=== PATIENT | male | born 1965 | race Caucasian/White ===

== ENCOUNTER 2017-12-19 09:54 | Observation (INO) | payer OTHER ==
[~2017-12-19] VITALS: Ht 185.4 cm; Wt 151.5 kg
[~2017-12-19 09:54] MED LIST: VIMOVO PO
[2017-12-19 10:38] LABS: BASOPHILS # (AUTO) 0.1 (0.0-0.1); BASOPHILS % 0.5 % (0.0-1.0); EOSINOPHILS # (AUTO) 0.1 (0.0-0.4); EOSINOPHILS % 1.1 % (0.0-6.0); HEMATOCRIT 56.6 % (38.2-49.6); HEMOGLOBIN 19.8 g/dL (14.0-18.0); LYMPHOCYTES # (AUTO) 1.3 (1.0-3.2); LYMPHOCYTES % 12.2 % (18.0-39.1); MEAN CORPUSCULAR VOLUME 91.6 fL (81-99); MONOCYTES # (AUTO) 0.9 (0.2-0.8); MONOCYTES % 8.5 % (4.4-11.3); NEUTROPHILS # (AUTO) 8.5 (2.1-6.9); NEUTROPHILS % 77.5 % (38.7-80.0); PLATELET COUNT 206 x10e3/uL (140-360); RED BLOOD COUNT 6.18 x10e6/uL (4.3-5.7); RED CELL DISTRIBUTION WIDTH 12.9 % (11.7-14.4)
[2017-12-19] MEDS ORDERED: DIATRIZOATE MEGL/DIATRIZOA SOD 30 ML BTL PO ONE (10:38)
[2017-12-19] MEDS ORDERED: ONDANSETRON HCL INJ 2 MG/ML VIAL IV STA (10:42)
[2017-12-19 10:44] LABS: CLARITY,URINE CLEAR (CLEAR); COLOR,URINE AMBER (YELLOW)
[2017-12-19 10:45] LABS: BILIRUBIN,URINE NEGATIVE (NEGATIVE); KETONES,URINE 1+ (NEGATIVE); LEUKOCYTE ESTERASE ,URINE NEGATIVE (NEGATIVE); NITRITE,URINE NEGATIVE (NEGATIVE); PROTEIN,URINE DIPSTICK TRACE (NEGATIVE); URINE UROBILINOGEN 0.2 mg/dL (0.2 - 1)
[2017-12-19 10:50] LABS: INR 1.1; PROTHROMBIN TIME 13.4 seconds (11.9-14.5)
[2017-12-19 10:51] LABS: PARTIAL THROMBOPLASTIN TIME 32.5 seconds (23.8-35.5)
[2017-12-19 10:58] LABS: EPITHELIAL CELLS,URINE FEW /LPF
[2017-12-19 10:59] LABS: ALANINE AMINOTRANSFERASE 61 IU/L (0-55); ALBUMIN 4.5 g/dL (3.5-5.0); ALBUMIN/GLOBULIN RATIO 1.3 (0.8-2.0); ALKALINE PHOSPHATASE 76 IU/L (40-150); AMYLASE 90 U/L (25-125); ANION GAP 15.1 mmol/L (8-16); BLOOD UREA NITROGEN 12 mg/dL (7-26); BUN/CREATININE RATIO 11 (6-25); CALCIUM 10.4 mg/dL (8.4-10.2); CARBON DIOXIDE 26 mmol/L (22-29); CHLORIDE 100 mmol/L (98-107); CREATININE, SERUM 1.13 mg/dL (0.72-1.25); EST GLOMERULAR FILTRATION RATE > 60 ML/MIN (60-); GLUCOSE 109 mg/dL (74-118); LIPASE 58 U/L (8-78); MAGNESIUM 1.9 MG/DL (1.3-2.1); MUCUS,URINE MODERATE (RARE); POTASSIUM 4.1 mmol/L (3.5-5.1); RBC,URINE 0-5 /HPF (0-5); SODIUM 137 mmol/L (136-145); WBC,URINE (MAN) 0-5 /HPF (0-5)
--- NOTE | 2017-12-19 12:21 | Diagnostic Imaging Report ---
PROCEDURE: A single AP view of the chest. COMPARISON: None. INDICATIONS: STOMACH PAIN FINDINGS: Lines/tubes: None. Lungs: The lungs are well inflated and clear. There is no evidence of pneumonia or pulmonary edema. Pleura: There is no pleural effusion or pneumothorax. Heart and mediastinum: The heart and the mediastinum are unremarkable. Bones: No acute bony abnormality. IMPRESSION: 1. No acute cardiopulmonary disease. David Gonzales M.D. Dictated by: David Gonzales M.D. on 12/19/2017 at 12:26 Electronically approved by: David Gonzales M.D. on 12/19/2017 at 12:26
--- NOTE | 2017-12-19 14:31 | Diagnostic Imaging Report ---
EXAM: CT Chest WITH contrast 12/19/2017 10:45 AM INDICATION: Chest pain. Low oxygen saturation. Pulmonary embolism. COMPARISON: None TECHNIQUE: Chest was scanned utilizing a multidetector helical scanner from the lung apex through the level of the adrenal glands without administration of IV contrast. Coronal and sagittal reformations were obtained. Pulmonary embolism protocol was performed. Initial scan demonstrated suboptimal opacification of the pulmonary arteries, so repeat examination of the chest was performed. IV CONTRAST: 160 mL of Isovue 300 RADIATION DOSE: Total DLP: 2035.42 mGy*cm Estimated effective dose: (DLP x 0.014 x size factor) mSv COMPLICATIONS: None. FINDINGS: LINES/ TUBES: None. LUNGS AND AIRWAYS: Examination limited due to beam hardening artifact due to body habitus. No filling defects to the pulmonary arteries to the resolved segmental level. Questionable filling defect in the posterior right lower lobe pulmonary artery on image 78 and 82 probably artifactual. The lungs are unremarkable. Airways are normal. PLEURA: The pleural spaces are clear. HEART AND MEDIASTINUM: The thyroid gland is normal. No mediastinal, hilar or axillary lymphadenopathy. The heart is normal in size.. There is no pericardial effusion. Lipomatosis. UPPER ABDOMEN: Limited non-contrast views of the upper abdomen show no abnormality within the visualized liver, spleen, pancreas, or kidneys. The adrenal glands are normal. BONES: No acute osseous abnormality. SOFT TISSUES: Unremarkable. IMPRESSION: No acute thoracic abnormality. Signed by: Dr. David Gonzales M.D. on 12/19/2017 2:27 PM
--- NOTE | 2017-12-19 15:00 | Diagnostic Imaging Report ---
EXAM: CT Abdomen and Pelvis WITH contrast INDICATION: Pain. Concern for bowel obstruction. COMPARISON: None. TECHNIQUE: Abdomen and pelvis were scanned utilizing a multidetector helical scanner from the lung base to the pubic symphysis after administration of IV contrast. Coronal and sagittal reformations were obtained. Routine protocol was performed. Scan was performed when during portal venous phase. IV CONTRAST: 100 cc Isovue 300 ORAL CONTRAST: Gastrografin and water mixture. RADIATION DOSE: Total DLP: 2035.42 mGy*cm (dose includes CT chest performed on the same day and time) Estimated effective dose: (DLP x 0.015 x size factor) mSv COMPLICATIONS: None FINDINGS: LINES and TUBES: None. LOWER THORAX: Unremarkable HEPATOBILIARY: Diffuse hepatic steatosis. No focal hepatic lesions. No biliary ductal dilation. GALLBLADDER: Subtle hyperdensity in the gallbladder neck on image 36 series 5 may represent calculi. No wall thickening. SPLEEN: No splenomegaly. Nonspecific fat attenuation focus in the spleen on image 24 series 5. PANCREAS: No focal masses or ductal dilatation. 8 mm focal fat in the uncinate process on image 42 series 5. ADRENALS: No adrenal nodules KIDNEYS/URETERS: Kidneys enhance symmetrically. No hydronephrosis. No cystic or solid mass lesions. No stones. GI TRACT: No abnormal distention, wall thickening, or evidence of bowel obstruction. Appendix is normal. PELVIC ORGANS/BLADDER: Unremarkable. LYMPH NODES: No lymphadenopathy. VESSELS: There is mild atherosclerotic disease in the aorta and major arterial branches. Accessory left renal artery. PERITONEUM / RETROPERITONEUM: No free air or fluid. BONES: Facet arthropathy on the left L4-L5. SOFT TISSUES: Unremarkable. IMPRESSION: 1. No acute abdominopelvic abnormality. 2. Hepatic steatosis. Signed by: Dr. David Gonzales M.D. on 12/19/2017 2:56 PM
[2017-12-19 16:26] LABS: ABG PCO2 45 mmHg (41-51); ABG PH 7.38 (7.31-7.41)
[2017-12-19 16:27] LABS: ABG HCO3 26 mmol/L (23-28); ABG PO2 75 mmHg (80-105)
[2017-12-19] MEDS ORDERED: SODIUM CHLORIDE 0.9% 50ML 50 ML ONE (16:58)
[2017-12-19] MEDS ORDERED: IOPAMIDOL 370 MG/ML 200 ML INFUS..BTL INJ ONE (16:58)
[2017-12-19] MEDS ORDERED: MORPHINE SULFATE INJ 4 MG/ML INJ IV PRN (18:45)
[2017-12-19] MEDS ORDERED: ZOLPIDEM TARTRATE 5 MG TAB PO PRN (18:45)
[2017-12-19] MEDS ORDERED: SIMETHICONE 80 MG CHEW PO PRN (18:45)
[2017-12-19] MEDS ORDERED: ALBUTEROL/IPRATROPIUM 3 ML NEB NEB PRN (18:45)
[2017-12-19] MEDS ORDERED: ACETAMINOPHEN 325 MG TAB PO PRN (18:45)
[2017-12-19] MEDS ORDERED: ONDANSETRON HCL INJ 2 MG/ML VIAL IV PRN (18:45)
[2017-12-19] MEDS ORDERED: MORPHINE SULFATE 2 MG/ML SYR IV PRN (19:00)
[2017-12-19] MEDS ORDERED: SODIUM CHLORIDE 0.9% 1000ML 1,000 ML ONE (19:30)
[2017-12-19] MEDS: SODIUM CHLORIDE 0.9% 1000ML 1,000 ML IV SCH (20:17)
--- NOTE | 2017-12-19 21:18 | History and Physical ---
Patient location: ER, room 7. PRESENTING COMPLAINT: Worsening diffuse abdominal pain for the last 2 days. HISTORY OF PRESENT ILLNESS: A 52-year-old male who was admitted from the ER. The patient came himself to the ER for unremitting diffuse mid abdominal pain that started yesterday. The patient felt that the pain was cramping, moderate in intensity, got worse this morning. He did not have any diarrhea. The patient had last bowel movement yesterday morning, was normal. Denies any bloody stool or black stool. The patient felt nauseated. He did not have any vomiting. He also denies any fever, chest pain, shortness of breath. The patient did not have any similar episodes in the past. He has a history of hiatal hernia. EGD was done several years ago at [facility]. He had a colonoscopy last year by Dr. Monge at this hospital. The patient denies any other complaints now. He is feeling better than in the morning at this present time. The patient's workup including CT of the abdomen and pelvis and did not show any significant abnormalities other than fatty liver. The patient has morbid obesity. He has history of sleep apnea on home CPAP for the last 4 years. He was found having hypoxia. Pulse oximetry was 84% to 85% on room air. CT chest with IV contrast did not show any convincing evidence of pulmonary embolism. The patient was persistently hypoxic upon nebulizer treatment and oxygen in the ER. His pulse oximetry got slightly improved, around 90%, but without oxygen it goes down again to 86% to 87% as per report from the ER physician. The patient denies any shortness of breath. He uses CPAP without any oxygen at home. The patient is also on testosterone injection every 2 weeks as per recommendation by his urologist. He was found having polycythemia likely secondary to testosterone and also sleep apnea. The patient denies any other complaints now. REVIEW OF SYSTEMS CONSTITUTIONAL: No fever, chills, rigor. ENT: No nasal congestion, no sore throat, no visual disturbance, and no earache. CARDIOVASCULAR: No chest pain, palpitation, or shortness of breath. PULMONARY: No cough, no hemoptysis. GI: Diffuse mid and lower abdominal pain as per HPI. Mild nausea and no vomiting. No passage of bloody stool or black stool. No blood in vomitus. : No dysuria and no hematuria. The patient has erectile dysfunction and hypergonadism as per his statement. No dysuria. No hematuria. MUSCULOSKELETAL, SKIN, LYMPHORETICULAR: No joint pain. No joint swelling. No skin rash, no swelling. NEUROLOGICAL: No loss of consciousness, seizure, or headache. HISTORY OF PAST MEDICAL ILLNESS: Obstructive sleep apnea on CPAP. Erectile dysfunction, hypergonadism, morbid obesity. Tubular adenoma of cecum and ascending colon. GERD , hiatal hernia. Morbid obesity. No history of hypertension or hyperlipidemia, diabetes mellitus, CAD, stroke or cancer as per the patient's statement. HISTORY OF PAST SURGERY: Vasectomy. No other history of surgery. EGD done more than 4 years ago. Colonoscopy last year at this hospital. ALLERGIES: NO KNOWN DRUG ALLERGIES. HOME MEDICATIONS: The patient is on Cialis for erectile dysfunction and testosterone injection every 2 weeks by his urologist. The patient is on no other medications. SOCIAL HISTORY: The patient lives at home with his in [place]. He has 3 offspring. HABITS: The patient denies smoking cigarettes or substance abuse. He drinks alcohol. His last alcoholic drink was 2 weeks ago. FAMILY HISTORY: No positive family history of CAD. PHYSICAL EXAMINATION VITAL SIGNS: At presentation, blood pressure 130/86, pulse 93, temperature 98.2, respirations 20, SPO2 of 88% on room air, now 94% on 2 liters of oxygen via nasal cannula. GENERAL: Alert, not in any acute distress now, lying in bed comfortably now, feeling better than in the morning. HEENT: NC, AT. No pallor. No icterus. Oral mucosa moist. NECK: No JVD, no carotid bruit, no lymphadenopathy, no thyromegaly. HEART: S1 and S2 regular. No murmur. LUNGS: Clear to auscultation. ABDOMEN: Soft with mild diffuse tenderness. No rebound tenderness. No palpable mass. Bowel sounds active in all quadrants. Obesity present. EXTREMITIES: No cyanosis, clubbing or edema. NEUROLOGICAL: Motor grossly equal on both sides. LABORATORY DATA: CBC: WBC 10.96, hemoglobin 19.8, hematocrit 52, platelets 206,000, MCV 91, RDW 12.9, neutrophils 77, lymphocytes 12. PT 13.4. INR 1.1. PTT 32.5. Arterial blood gas: P 7.38, pCO2 45, pO2 75, bicarb 26. O2 sat 94% on room air. Chemistry panel: Sodium 137, potassium 4.1, chloride 100, CO2 of 26, anion gap 11, BUN 12, creatinine 1.13, glucose 109, lactic acid 8.5, calcium 10.4, magnesium 1.9. Total bilirubin 1.3, AST 37, ALT 61, alkaline phosphatase 76. Total protein 8.1, Albumin 4.5,Globulin 3.6. Amylase 90, lipase 58. Urinalysis: Protein trace, glucose negative, ketones 1+, WBCs 0-5, RBCs 0-2. RADIOLOGICAL DATA: Chest x-ray: Single view no acute cardiopulmonary disease. Heart and mediastinum unremarkable. No evidence of pneumonia or pulmonary edema. CT of the abdomen and pelvis with contrast, no acute abnormalities noted, hepatic steatosis present. CT of chest with IV contrast no acute thoracic abnormality. EKG pending. ASSESSMENT AND PLAN 1. Diffuse abdominal pain, exact etiology not clear. The patient's CT of the abdomen with contrast is negative for any acute abnormalities. He has history of tubular adenoma and constipation, likely related to constipation. The patient had last bowel movement yesterday. Would keep the patient on some bowel regimen for now. If needed, would consult evaporator operator, Dr. Monge, who is familiar with the patient. He had a colonoscopy last year by him. Continue the patient on famotidine p.o. for now. 2. Hypoxia due to sleep apnea likely. The patient has also slight elevation of the pCO2. He does not have any shortness of breath. The patient was on CPAP. Dr. Calzada, high school teacher, was consulted. He recommended addition of oxygen with the CPAP machine. Will keep the patient on CPAP with oxygen. 3. Polycythemia, likely secondary to both hypoxia and testosterone injection. Will treat the patient as per renal request. Hematology consult for need for phlebotomy. 4. Cardiac evaluation. The patient had a cardiac evaluation recently as an outpatient by his primary care physician, Dr. Mendoza Bocanegra. Workup was negative as per report. Would have an EKG. Would also add troponin and BNP to his labs. ADVANCE DIRECTIVE: The patient is full code. DISCHARGE PLAN: Will discharge the patient tomorrow if cleared by high school teacher and blueprint maker. Job#: [id number] [facility]
[2017-12-20 05:43] LABS: BASOPHILS % 0.5 % (0.0-1.0); EOSINOPHILS # (AUTO) 0.2 (0.0-0.4); EOSINOPHILS % 2.4 % (0.0-6.0); HEMOGLOBIN 17.5 g/dL (14.0-18.0); LYMPHOCYTES # (AUTO) 1.6 (1.0-3.2); LYMPHOCYTES % 21.1 % (18.0-39.1); MEAN CORPUSCULAR HEMOGLOBIN 32.3 pg (28-32); MEAN CORPUSCULAR VOLUME 92.4 fL (81-99); MONOCYTES # (AUTO) 0.8 (0.2-0.8); MONOCYTES % 10.7 % (4.4-11.3); NEUTROPHILS # (AUTO) 5.1 (2.1-6.9); PLATELET COUNT 163 x10e3/uL (140-360); RED BLOOD COUNT 5.41 x10e6/uL (4.3-5.7); RED CELL DISTRIBUTION WIDTH 12.8 % (11.7-14.4)
[2017-12-20 06:06] LABS: ALANINE AMINOTRANSFERASE 45 IU/L (0-55); ALBUMIN 3.5 g/dL (3.5-5.0); ALBUMIN/GLOBULIN RATIO 1.2 (0.8-2.0); ALKALINE PHOSPHATASE 64 IU/L (40-150); ANION GAP 12.9 mmol/L (8-16); BILIRUBIN,DIRECT 0.3 mg/dL (0.0-0.5); BLOOD UREA NITROGEN 14 mg/dL (7-26); BUN/CREATININE RATIO 13 (6-25); CALCIUM 9.2 mg/dL (8.4-10.2); CARBON DIOXIDE 26 mmol/L (22-29); CHLORIDE 103 mmol/L (98-107); CHOL/HDL RATIO 5.4 (3.9-4.7); CHOLESTEROL 129 MD/DL (0-199); CREATININE, SERUM 1.05 mg/dL (0.72-1.25); EST GLOMERULAR FILTRATION RATE > 60 ML/MIN (60-); GLUCOSE 91 mg/dL (74-118); HDL CHOLESTEROL 24 MG/DL (40-60); LDL CHOLESTEROL 83 MG/DL (60-130); POTASSIUM 3.9 mmol/L (3.5-5.1); SODIUM 138 mmol/L (136-145); TRIGLYCERIDES 112 MG/DL (0-149)
[2017-12-20 06:13] LABS: THYROID STIMULATING HORMONE 0.922 uIU/mL (0.350-4.940)
[2017-12-20] MEDS: SODIUM CHLORIDE 0.9% 1000ML 1,000 ML IV SCH (08:05)
[2017-12-20] MEDS ORDERED: ASPIRIN 325 MG TAB PO SCH (09:00)
[2017-12-20] MEDS ORDERED: THIAMINE HCL 100 MG TAB PO SCH (09:00)
--- NOTE | 2017-12-20 11:25 | Consultation ---
DATE OF CONSULTATION: December 19, 2017 PULMONARY CONSULTATION PATIENT OF: Dr. Sajan Bocanegra and Dr. Messer Admitted with cramping abdominal pain. Concern because his initial pulse oximetry was low; however, blood gases were performed and pO2 was 75 and O2 sat was 94. Patient does have a history of obesity, hypoventilation syndrome, and uses his BiPAP faithfully at night. He does take testosterone injections prescribed by Dr. Olvera He has had a vasectomy. His medications include Cialis and a cholesterol lowering medicine which he takes only intermittently. CT of the abdomen revealed only fatty liver, questionable gallstone. PHYSICAL EXAMINATION VITAL SIGNS: Temperature 98.2, pulse 93, respirations 20, blood pressure 138/86. HEAD: Normocephalic and atraumatic. Full neck. LUNGS: Diminished breath sounds but clear. HEART: Regular rhythm. ABDOMEN: Obese. EXTREMITIES: Not edematous. PLAN: Plan is for oximetry overnight. While using the patient's CPAP, consider assessing him for home oxygen to keep saturations well at night. Consider phlebotomy for hemoglobin. The patient donates blood on a somewhat irregular basis. Occult malignancy seems unlikely. Thank you for this kind referral. Job#: [id number]
[2017-12-20] MEDS: PANTOPRAZOLE SOD 40 MG TABEC PO SCH ×2 (12:21→17:15)
[2017-12-20] MEDS: DOCUSATE SODIUM 100 MG CAP PO SCH ×2 (12:21→17:15)
[2017-12-20 12:41] VITALS: BP 138/68
[2017-12-20 15:16] VITALS: BP 138/68
[2017-12-20 15:22] VITALS: BP 130/78
[2017-12-20 15:29] VITALS: BP 130/78
--- NOTE | 2017-12-20 16:05 | Consultation ---
DATE OF CONSULTATION: December 20, 2017 ATTENDING DOCTOR: Dr. Qureshi. Thank you, Dr. Qureshi, for this consultation. This is a very pleasant 52-year-old gentleman with a past medical history that includes COPD, obstructive sleep apnea, hypogonadism, currently on testosterone treatment, admitted through emergency with worsening shortness of breath. His other medical conditions include GERD, hyperlipidemia, and morbid obesity. Patient also complaining of worsening abdominal pain, it started yesterday. It was associated with nausea, but denies any vomiting, constipation, or loose motion. No fevers or chills reported. At the time of admission, patient's CBC showed hemoglobin was 19. Patient has no recent history of any headache, dizziness, or stroke. Patient received IV hydration, hemoglobin dropped to 17. Patient is symptomatically feeling better. PAST MEDICAL HISTORY: Includes obstructive sleep apnea, erectile dysfunction, hypogonadism, morbid obesity, tubular adenoma of cecum, GERD, hiatal hernia. ALLERGIES: IN NURSING LIST. MEDICATIONS: List reviewed. SOCIAL HISTORY: No current smoking, alcohol, or drug. REVIEW OF SYSTEMS: A 12-point review as per the HPI. FAMILY HISTORY: Noncontributory. PHYSICAL EXAMINATION GENERAL: Alert, awake, communicative. HEENT: Normocephalic, atraumatic. Sclerae pink. Conjunctivae clear. NECK: Supple. CHEST: Decreased breath sounds at the bases. CARDIOVASCULAR: Regular rate and rhythm. ABDOMEN: Soft, obese. EXTREMITIES: No clubbing, cyanosis, or edema. LABS AND IMAGING: Reviewed. ASSESSMENT AND PLAN: Patient with history of multiple medical conditions. I am currently following for; 1. Erythrocytosis. The patient has erythrocytosis secondary to obstructive sleep apnea and testosterone treatment. Patient's hematocrit is trending downward. Discussed in detail about the testosterone treatment. Patient will hold testosterone treatment at current. Will discuss about compliance with the CPAP machine. Will monitor CBC closely. In case of no response, might consider palliative phlebotomy. Will follow patient closely. 2. Abdominal pain. So far, doing better. Clinical condition is improving. Continue current care. 3. Hypoxemia due to sleep apnea. Patient is following with linen room supervisor. Will continue remaining care. Will follow patient closely. Job#: [id number] [facility]
--- NOTE | 2017-12-20 16:11 | Diagnostic Imaging Report ---
PROCEDURE:ABDOMINAL ULTRASOUND COMPARISON:[facility], CT, CT ABDOMEN/PELVIS W, 12/19/2017, 13:00. INDICATIONS:ABDOMEN PAIN FINDINGS: Exam limited by patient's large body habitus. Liver: 16.0 cm. Increased hepatic parenchymal echogenicity. No focal mass. Main portal vein: 1.1 cm. Hepatopetal flow. Gallbladder: Questionable small stone at the gallbladder neck. No other stones or sludge are identified. No gallbladder wall thickening. Common Bile Duct: 0.5 cm. No echogenic filling defect. Sonographic Patel's sign: Negative Right kidney: 13.5 cm. No solid or cystic mass, echogenic calculi, or hydronephrosis. Normal parenchymal echogenicity. Left kidney: 12.4 cm. No solid or cystic mass, echogenic calculi, or hydronephrosis. Normal parenchymal echogenicity. Spleen: 11.4 cm. No focal lesions. The distal portion is obscured by overlying bowel gas. Proximal and mid-portions are unremarkable. Pancreas: The visualized portions of the pancreas are normal. Inferior vena cava: Normal. Aorta: Normal. Ascites: None. CONCLUSION: 1. liver size in the upper limit of normal, with diffuse fatty infiltration. No focal lesions. 2. Questionable cholelithiasis. No sonographic evidence of cholecystitis. Kp Paul M.D. Dictated by: Kp Paul M.D. on 12/20/2017 at 16:16 Electronically approved by: Kp Paul M.D. on 12/20/2017 at 16:16
[2017-12-20] MEDS ORDERED: ENOXAPARIN SOD INJ 40 MG/0.4 ML SYR SC SCH (17:00)
--- NOTE | 2017-12-20 17:41 | Discharge Summary ---
CONSULTANTS 1. Dr. Calzada, skip pitman. 2. Dr. Sarmiento, automotive parts manager. 3. Dr. Monge, rn gynecology. FINAL DIAGNOSIS: Acute abdominal pain due to gastritis, resolved. OTHER DIAGNOSES 1. Fatty liver on CT of abdomen. 2. Hypoxia. 3. Obstructive sleep apnea by history. 4. 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 5. Hypogonadism on testosterone by history. 6. Erectile dysfunction by history. 7. Morbid obesity. BRIEF HOSPITAL COURSE: This 60-year-old male was admitted from the ER. Patient came to the ER for unremitting, diffuse abdominal pain for 2 days. The patient did not have any diarrhea, rectal bleeding or black stool. He also did not have any nausea or vomiting. The patient has a history of GERD with hiatal hernia. He had also a history of tubular colonic adenoma status post polypectomy last year by Dr. Monge. CT of the abdomen was negative for any acute findings. The patient had fatty infiltration of the liver. He was planned for discharge from the ER, but the patient was found having hypoxia in the ER. He has a history of sleep apnea, but he was noted to be on home oxygen. Chest x-ray was negative for any pleural effusion or pneumothorax. The patient was evaluated by Dr. Calzada, skip pitman. He recommended observation. The patient was continued on telemetry. Kept on nebulizer treatments and oxygen p.r.n. He was also on CPAP. Blood gas analysis showed hypoxia, no hypercapnia. The patient was found having erythrocytosis. He was on testosterone injection biweekly by his urologist as per his treatment. Dr. Sarmiento, automotive parts manager, just called and stated his hemoglobin level came down to 17 today from 19. His hematocrit came down from [address] Sarmiento recommended no need for any phlebotomy. The patient was continued on aspirin p.o. He was advised to get rid of testosterone injection for now. The patient was also requested consult by Dr. Monge. He does not want to stay in the hospital. He wants to go home. He was, otherwise, uneventful. The patient is hemodynamically stable. The patient will be discharged home. He was advised to follow with skip pitman, automotive parts manager and rn gynecology as an outpatient. EXAM: Vitals: BP 130/78, pulse 70, temp 97.9, respirations 16, SPO2 96 on room air. General examination: He was not in acute distress. HEENT: No pallor. No icterus. Oral mucosa is moist. Neck: No JVD. No carotid bruit. No lymphadenopathy. No thyromegaly. Heart: S1 and S2 regular. No murmur. Lungs: Air entry equal on both sides. No crackles. No rhonchi. Abdomen is soft and nontender. No mass is palpable. Bowel sounds active in all quadrants. No rebound tenderness. Extremities: No edema, cyanosis, clubbing. Neurology: Motor grossly equal on both sides. LABORATORY DATA: CBC with WBC 7.78, hemoglobin 17.5, hematocrit 50. Labs later on: CK 3, MCV 92, RDW 12, neutrophils 65, lymphocytes 21. PT 13.4, INR 1.10, PTT 32.5. Chemistry panel: Sodium 130, potassium 3.9, chloride 106, CO2 26, anion gap 9, BUN 14, creatinine 1.05, glucose 91, lactic acid 8.5, calcium 9.2, magnesium 1.9, total bilirubin 0.8, direct bilirubin 0.3, AST 29, ALT 45, alk phos 54. Troponin I 0.001. BNP less than 10. Total protein 6.4, albumin 3.5, globulin 2.9. Triglycerides 112, cholesterol 129, LDL 83, HDL 24. Amylase 90, lipase 58. TSH 0.92. Urinalysis: Protein trace, glucose negative, ketones 1+. Leukocyte esterase negative. WBCs 0-5, RBCs 0-5. Alcohol level less than 10. Hepatitis C virus antibody pending. RADIOLOGICAL DATA: X-ray of chest, single view, at presentation: No acute cardiopulmonary process. CT of the abdomen and pelvis with contrast: No acute abdominal or pelvic abnormality. Hepatic steatosis. CT chest with IV contrast: No acute thoracic abnormality. No evidence of embolism. Abdominal ultrasound: The liver size is at the upper limits of normal with diffuse fatty infiltration, no focal lesions. Questionable cholelithiasis. No sonographic evidence of cholecystitis. MEDICATIONS AT DISCHARGE: Please refer to the medication reconciliation sheet. DIET: Heart healthy diet. ACTIVITY: As tolerated. INSTRUCTIONS AT DISCHARGE: Continue medications as per discharge recommendations. Hold testosterone injection for now. Followup with skip pitman, automotive parts manager and rn gynecology is advisable. Continue CPAP machine use at home. Follow up with PCP, Dr. Mendoza Bocanegra, in 1 week. Repeat CBC and CMP in 1 week. RALPH ARMSTRONG MD Job#: [id number] [facility]
--- NOTE | 2017-12-21 00:47 | Consultation ---
DATE OF CONSULTATION: HISTORY: Mr. Maxwell is 52-year-old gentleman with past medical history of Jauregui's palsy; sleep apnea; hypogonadism; on testosterone treatment; hyperlipidemia; chronic obstructive airway disease; was fine until about 2 days prior to his presentation in the emergency room when he started having diffuse abdominal cramp, intermittent, severe, does not relinquish in severity, brought on to the emergency room. He tried at home to use hot water bottle and took hot shower, but he continued to have cramps. This is associated with feeling nausea, but he denied vomiting, denied fever, denied trouble change in his bowel movement, denied any GI bleed. He has been on diet to lose weight and he has lost recently total of 17 pounds. He admits using ibuprofen regularly for back pain. He denied heartburn and acid reflux. REVIEW OF SYSTEMS: Unremarkable. PAST SURGICAL HISTORY: Vasectomy. SOCIAL HISTORY: He does drink alcohol. He is and has 3 kids. ALLERGIES: NIL. MEDICATIONS DURING HOSPITAL: Colace, Protonix, Lovenox, aspirin, morphine, Zofran, Ambien. FAMILY MEDICAL HISTORY: His brother of esophageal cancer with metastasis. His father diagnosed recently with colon cancer. PHYSICAL EXAMINATION: GENERAL: He is awake, alert, oriented. Overweight gentleman. VITAL SIGNS: Temperature 97, pulse 70, respiratory rate 16, blood pressure 130/78. HEENT: Normal sclerae. NECK: Supple. No node or mass. LUNGS: Clear to auscultation. HEART: Regular-regular rhythm. ABDOMEN: Soft, obese. No acute sign. Bowel sounds present, but very quiet. No organomegaly. EXTREMITIES: No edema. CENTRAL NERVOUS SYSTEM: Motor function grossly intact. LABS: Urinalysis unremarkable. CBC: White cell count 8, hemoglobin 17, hematocrit 50, platelets 163,000. PT and PTT normal. Amylase and lipase normal. TSH normal. Total protein and albumin normal. BUN and creatinine normal. Sodium and potassium normal. Total bilirubin mildly elevated at 1.3, alk phos normal, AST mildly elevated 37, ALT 61. Ultrasound showed possible gallstone, fatty liver. CT scan with contrast of the abdomen showed fatty liver. IMPRESSION: Not sure about the etiology of the cramp that he suffered. He could have had mild colitis related to using his nonsteroidal antiinflammatory drug. He could have developed some mild diverticulosis and had mild episode of diverticulitis. Possible but unlikely gallstone disease. Patient did have colonoscopy in September of 2016 in which 7 polyps were removed and the biopsy of those polyps was tubular adenomatous colon polyps and hyperplastic. PLAN: So, my plan for him is to have soft diet for next couple of days, to use antispasmodic agents such as Bentyl as needed. To call my office after his discharge if his pain reoccur. To stop using any nonsteroidal antiinflammatory drugs. As far as the liver enzymes are elevated, when we see him in the office for followup, will do full liver workup. Most likely, this liver enzymes elevation is due to fatty liver. As far as the increasing hemoglobin and hematocrit, will repeat. If it came back again elevated, we may refer back to the primary care or manager therapy. Job#: [id number]
== END 2017-12-20 20:00 | disposition home or self-care (01) ==
LOC: ER 09:54 → UNDOADMOB 17:26 → ERHOLD 17:26 → IMCU 12-20 12:35
PROVIDERS: ADMIT Internal Medicine; ATTEND Internal Medicine
DX: K29.70 Gastritis, unspecified, without bleeding (principal); D75.1 Secondary polycythemia; R09.02 Hypoxemia; E66.01 Morbid (severe) obesity due to excess calories; G47.33 Obstructive sleep apnea (adult) (pediatric); N52.9 Male erectile dysfunction, unspecified; E29.0 Testicular hyperfunction; K21.9 Gastro-esophageal reflux disease without esophagitis; K44.9 Diaphragmatic hernia without obstruction or gangrene; D12.2 Benign neoplasm of ascending colon; D12.0 Benign neoplasm of cecum; E78.5 Hyperlipidemia, unspecified; Z79.1 Long term (current) use of non-steroidal anti-inflammatories (NSAID); Z79.899 Other long term (current) drug therapy; K76.0 Fatty (change of) liver, not elsewhere classified; Z68.41 Body mass index [BMI] 40.0-44.9, adult
CPT/HCPCS: 36415 ×2; 71045; 71260; 74177; 76700; 80053 ×2; 80061; 80320; 81001; 82150; 82248; 82805; 83605; 83690; 83735; 83880; 84443; 84484; 85025 ×2; 85610; 85730; 86803; 93005; 99284; G0378 ×2; J1650; J2405; J3411; J7030; Q9967; S0164; 36600

== ENCOUNTER → 2018-02-12 | Day surgery (SDC) | payer OTHER ==
[~2018-02-12] MED LIST changes: +ASPIRIN325 MG PO; +CRESTOR5 MG PO; +FENTANYL CITRATE/PF 100MCG/2 ML INJ ONE; +MIDAZOLAM HCL 2 MG/2 ML VIAL ONE; +PROPOFOL IV EMULSION 10 MG/ML 50 ML VIAL ONE; +TESTOSTERO100 MG/1 M INJ
[2018-02-12 10:00] VITALS: BP 101/62
== END | disposition home or self-care (01) ==
LOC: OR 06:32
PROVIDERS: ATTEND Internal Medicine Gastroenterology
DX: K92.1 Melena (principal); D12.0 Benign neoplasm of cecum; D12.3 Benign neoplasm of transverse colon; K64.8 Other hemorrhoids; K21.9 Gastro-esophageal reflux disease without esophagitis; G47.33 Obstructive sleep apnea (adult) (pediatric); I48.91 Unspecified atrial fibrillation; E11.9 Type 2 diabetes mellitus without complications; E66.01 Morbid (severe) obesity due to excess calories; F41.9 Anxiety disorder, unspecified; Z01.810 Encounter for preprocedural cardiovascular examination; Z79.82 Long term (current) use of aspirin; Z68.41 Body mass index [BMI] 40.0-44.9, adult; Z80.0 Family history of malignant neoplasm of digestive organs
CPT/HCPCS: 45384; 93005; J2250; 45378

== ENCOUNTER → 2018-05-23 | Outpatient (CLI) | payer OTHER ==
[~2018-05-23] MED LIST changes: -FENTANYL CITRATE/PF 100MCG/2 ML INJ ONE; -MIDAZOLAM HCL 2 MG/2 ML VIAL ONE; -PROPOFOL IV EMULSION 10 MG/ML 50 ML VIAL ONE
--- NOTE | 2018-05-23 16:01 | Diagnostic Imaging Report ---
Thyroid ultrasound. History: Nodules noted on outside screening study. Comparison: <None available>. Discussion: Transverse and longitudinal images of the thyroid were obtained demonstrating normal echogenicity of the thyroid. The sizes of the lobes are normal with the right thyroid lobe measuring 5.8 x 3.0 x 2.7 cm and the left measuring 5.9 x 2.1 x 2.7 cm. The isthmus is within normal limits measuring 0.5 cm. Small cyst in the right thyroid upper aspect measures 0.7 x 0.6 x 0.6 cm. This does not meet criteria for biopsy. Small cyst in the left thyroid lobe measures 0.7 x 0.5 x 0.6 cm. This also does not meet criteria for biopsy. Follow-up in one year recommended. IMPRESSION: Bilateral thyroid nodules are cystic and do not meet criteria for biopsy. Signed by: Dr. Ramirez Villanueva DO on 05/23/2018 3:58 PM
--- NOTE | 2018-05-23 16:36 | Diagnostic Imaging Report ---
PROCEDURE:TESTICULAR ULTRASOUND COMPARISON:None. INDICATIONS:TESTICULAR PAIN TECHNIQUE: Ibarra-scale and color Doppler images of the testicles and scrotal contents were obtained. Duplex imaging with spectral waveform analysis was performed of the testicular arteries and veins. FINDINGS: RIGHT SCROTUM: Testicle: Measures 3.9 x 1.9 x 2.9 cm. No intratesticular mass. Epididymal head: Measures 0.9 x 0.8 x 0.6 cm. Hydrocele: Small hydrocele Varicocele: None LEFT SCROTUM: Testicle: Measures 3.7 x 2.3 x 2.8 cm. No intratesticular mass. Epididymal head: Measures 0.6 x 1.0 x 0.7 cm. Hydrocele: Small hydrocele Varicocele: None CONCLUSION: Small bilateral hydroceles; otherwise normal study. Ramirez Villanueva D.O. Dictated by: Ramirez Villanueva D.O. on 05/23/2018 at 16:47 Electronically approved by: Ramirez Villanueva D.O. on 05/23/2018 at 16:47
--- NOTE | 2018-05-23 16:38 | Diagnostic Imaging Report ---
PROCEDURE:TESTICULAR DOPPLER ULTRASOUND COMPARISON:None. INDICATIONS:TESTICULAR PAIN TECHNIQUE: Color Doppler images of the testicles and scrotal contents were obtained. Duplex imaging with spectral waveform analysis was performed of the testicular arteries and veins. FINDINGS: RIGHT SCROTUM: Normal Doppler blood flow to the right testes and epididymis. LEFT SCROTUM: Normal Doppler blood flow to the left testes and epididymis. CONCLUSION: Normal bilateral scrotal Doppler. Ramirez Villanueva D.O. Dictated by: Ramirez Villanueva D.O. on 05/23/2018 at 16:49 Electronically approved by: Ramirez Villanueva D.O. on 05/23/2018 at 16:49
== END ==
LOC: US 13:27
PROVIDERS: ATTEND Internal Medicine
DX: E04.2 Nontoxic multinodular goiter (principal); N50.811 Right testicular pain; N43.3 Hydrocele, unspecified
CPT/HCPCS: 76536; 76870; 93976

== ENCOUNTER 2019-05-07 20:22 | Observation (INO) | payer OTHER ==
[~2019-05-07] VITALS: Ht 185.4 cm; Wt 145.1 kg
[2019-05-07 21:02] LABS: BASOPHILS % 0.4 % (0.0-1.0); EOSINOPHILS # (AUTO) 0.2 (0.0-0.4); EOSINOPHILS % 1.8 % (0.0-6.0); HEMATOCRIT 52.5 % (38.2-49.6); HEMOGLOBIN 17.5 g/dL (14.0-18.0); LYMPHOCYTES # (AUTO) 1.8 (1.0-3.2); LYMPHOCYTES % 16.9 % (18.0-39.1); MEAN CORPUSCULAR HEMOGLOBIN 30.7 pg (28-32); MEAN CORPUSCULAR HGB CONC 33.3 g/dL (31-35); MEAN CORPUSCULAR VOLUME 92.1 fL (81-99); MONOCYTES % 9.1 % (4.4-11.3); NEUTROPHILS # (AUTO) 7.6 (2.1-6.9); NEUTROPHILS % 71.4 % (38.7-80.0); PLATELET COUNT 202 x10e3/uL (140-360); RED CELL DISTRIBUTION WIDTH 13.5 % (11.7-14.4)
[2019-05-07 21:18] LABS: AMYLASE 82 U/L (25-125); LIPASE 55 U/L (8-78)
[2019-05-07 21:20] LABS: ALBUMIN/GLOBULIN RATIO 1.3 (0.8-2.0); ANION GAP 14.8 mmol/L (8-16); CALCIUM 9.3 mg/dL (8.4-10.2); CREATININE, SERUM 1.33 mg/dL (0.72-1.25); POTASSIUM 3.8 mmol/L (3.5-5.1)
[2019-05-07 21:26] LABS: CREATINE KINASE MB 4.1 ng/mL (0-5.0)
--- NOTE | 2019-05-07 23:00 | NUR ---
SEE CHART FOR DOWNTIME FORMS AND NURSES NOTES.
--- NOTE | 2019-05-07 23:11 | Diagnostic Imaging Report ---
EXAMINATION: CHEST SINGLE (PORTABLE) INDICATION: Short of breath COMPARISON: Chest CT 12/19/2017 FINDINGS: TUBES and LINES: None. LUNGS: Lungs are well inflated. Lungs are clear. There is no evidence of pneumonia or pulmonary edema. Slightly elevated left hemidiaphragm. PLEURA: No pleural effusion or pneumothorax. HEART AND MEDIASTINUM: The cardiomediastinal silhouette is unremarkable. BONES AND SOFT TISSUES: No acute osseous lesion. Soft tissues are unremarkable. UPPER ABDOMEN: No free air under the diaphragm. IMPRESSION: No acute thoracic radiographic abnormality. Signed by: Lance Haines DO on 05/07/2019 11:08 PM
[2019-05-07] MEDS ORDERED: SODIUM CHLORIDE FLUSH 10 ML SYR INJ PRN (23:15)
[2019-05-07] MEDS ORDERED: NITROGLYCERIN 0.4 MG SUBL SL PRN (23:15)
[2019-05-07] MEDS ORDERED: ONDANSETRON HCL INJ 2MG/ML 2ML 2 MG/ML VIAL IV PRN (23:15)
[2019-05-07] MEDS ORDERED: MORPHINE SULFATE 2 MG/ML SYR 1ML IV PRN (23:15)
[2019-05-07] MEDS ORDERED: FAMOTIDINE 20 MG/2 ML VIAL IV SCH (23:15)
[2019-05-08] VITALS (7 sets, daily range): BP systolic 125–142; BP diastolic 66–79
[2019-05-08] MEDS ORDERED: ACETAMINOPHEN 325 MG TAB PO ONE (00:15)
--- NOTE | 2019-05-08 00:34 | NUR ---
Received report from HENOK Cotton. Patient arrived via stretcher to the unit. Patient is in no pain or distress. A&Ox3. Call light within reach. Patient ambulates with no trouble.
[2019-05-08 06:29] LABS: CREATINE KINASE MB 3.4 ng/mL (0-5.0)
[2019-05-08 06:56] LABS: CHOL/HDL RATIO 6.1 (3.9-4.7)
--- NOTE | 2019-05-08 07:14 | NUR ---
Gave report to oncoming nurse. Call light within reach. patient in bed.
--- NOTE | 2019-05-08 07:42 | NUR ---
Received patient, a/ox3, no resp distress, call light within reach, will monitor.
[2019-05-08] MEDS: ASPIRIN 81 MG ENTERIC COATED PO SCH (09:08)
[2019-05-08] MEDS: SODIUM CHLORIDE 0.45% 1,000 ML IV SCH ×2 (09:08→21:16)
[2019-05-08] MEDS: PANTOPRAZOLE 40 MG 10ML VIAL IV SCH (09:24)
--- NOTE | 2019-05-08 09:24 | NUR ---
Rounds by Dr. Calzada and Dr. Cervantes, working up patient
--- NOTE | 2019-05-08 09:59 | NUR ---
Patient signed consent at this time for stress test
--- NOTE | 2019-05-08 10:25 | NUR ---
Patient picked up for stress test at this time
[2019-05-08 10:45] LABS: ANION GAP 14.8 mmol/L (8-16); BLOOD UREA NITROGEN 14 mg/dL (7-26); BUN/CREATININE RATIO 13 (6-25); CALCIUM 9.1 mg/dL (8.4-10.2); CARBON DIOXIDE 23 mmol/L (22-29); CHLORIDE 101 mmol/L (98-107); CREATININE, SERUM 1.09 mg/dL (0.72-1.25); EST GLOMERULAR FILTRATION RATE > 60 ML/MIN (60-); GLUCOSE 90 mg/dL (74-118); POTASSIUM 3.8 mmol/L (3.5-5.1); SODIUM 135 mmol/L (136-145)
[2019-05-08] MEDS ORDERED: ENOXAPARIN SOD INJ 40 MG/0.4 ML SYR SC SCH ×2 (11:00→17:00)
--- NOTE | 2019-05-08 13:29 | NUR ---
PT IN STRESS TEST UNABLE TO COMPLETE DISCHARGE PLAN ASSESSMENT
--- NOTE | 2019-05-08 14:38 | Diagnostic Imaging Report ---
Right upper quadrant abdominal ultrasound, 05/08/2019. History: Atypical chest pain. Comparison: None available. Discussion: Transverse and longitudinal images of the right upper quadrant of the abdomen were obtained demonstrating a liver of normal size but diffusely increased echogenicity measuring 14.9 cm in length. There is no evidence of a focal hepatic mass. The portal vein is patent with hepatopetal flow and is within normal limits measuring 10 mm in diameter. The biliary tree is within normal limits with the common bile duct measuring 3 mm in diameter. The gallbladder is normal without evidence of shadowing stones, wall thickening, or pericholecystic fluid. The sonographic Patel's sign was negative. The right kidney is normal in size and echogenicity without evidence of hydronephrosis, stones, or mass and measures 13.6 cm in length. The pancreatic <body and tail> are visualized and are normal in appearance. The abdominal aorta is within normal limits. There is no evidence of free fluid. IMPRESSION: Diffuse fatty infiltration of the liver without focal hepatic abnormality. Otherwise unremarkable exam. No evidence of cholelithiasis. Signed by: Jcarlos Resendiz on 05/08/2019 2:35 PM
--- NOTE | 2019-05-08 14:48 | NUR ---
Patient returned from having stress test, stable and no c/o chest pains, no resp distress.
[2019-05-08 15:22] LABS: CREATINE KINASE MB 3.8 ng/mL (0-5.0)
--- NOTE | 2019-05-08 15:48 | History and Physical ---
CHIEF COMPLAINT: 1. Chest pain. 2. Epigastric pain. HISTORY OF PRESENT ILLNESS: This is a 54-year-old male with a past medical history of hyperlipidemia, hypogonadism, was in his usual state until patient came to emergency room after he put started developing some epigastric pain, atypical left-sided chest pain, and upper back pain. No headache. No dizziness. No shortness of breath. No hematochezia. No melena. No nausea. No vomiting. No diarrhea. No constipation. No leg pain. No leg swelling. No seizures. No focal weakness. No tingling or numbness. ALLERGIES: NO KNOWN DRUG ALLERGY. PAST MEDICAL HISTORY: 1. Hyperlipidemia. 2. Hypogonadism. PAST SURGICAL HISTORY: History of vasectomy. SOCIAL HISTORY: The patient is , lives with his . HABITS: Denies smoking. Occasional alcohol use. No illicit drug use. MEDICATIONS: On lovastatin, aspirin, and testosterone injection by urologist. REVIEW OF SYSTEMS: CONSTITUTIONAL: Denies fatigue or weakness. HEENT: No diplopia. No blurring of vision. CARDIOPULMONARY: No cough, but has chest pain and no shortness of breath. ALIMENTARY SYSTEM: No nausea. No vomiting. GENITOURINARY: No dysuria. No hematuria. MUSCULOSKELETAL: No joint pain. CENTRAL NERVOUS SYSTEM: No focal weakness. PHYSICAL EXAMINATION: GENERAL: This is a 54-year-old male, who is alert and oriented x3, in no gross distress. VITAL SIGNS: Temperature 98.5, pulse 66, respiratory rate 22, and blood pressure 134/74. HEENT: Head is normocephalic. Pupils bilaterally equally reactive to light. Extraocular muscles intact. NECK: Supple. No JVD. No carotid bruit. LUNGS: Clear to auscultation and percussion bilaterally. No added sounds. HEART: S1 and S2. Regular rate and rhythm. No S3 or murmur. ABDOMEN: Epigastric tenderness. No guarding. No rigidity. Obese. EXTREMITIES: No pedal edema. Peripheral pulses +1. PAPER DELIVERER: Grossly nonfocal. LABORATORY DATA: Chest x-ray is normal. EKG sinus rhythm with PVCs. White count 10.6, hemoglobin 17.5, hematocrit 52.5 high, and platelet 202 normal. Sodium 137, potassium 3.8, BUN 14, creatinine 1.33 and CK 269. ASSESSMENT: 1. Angina, rule out myocardial infarction. 2. Hyperlipidemia. 3. On testosterone replacement by the urologist. 4. Increase creatinine, rule out dehydration. PLAN: Cardiology consult, Dr. Madrigal. Aspirin 81 daily. Protonix 40 mg IV daily. Case discussed with the patient, his condition and prognosis. MD NOE Boyd/MODL /[id number]
--- NOTE | 2019-05-08 16:34 | Consultation ---
DATE OF CONSULTATION: Pulmonary Consultation Patient of Dr. Fide Bocanegra, Dr. Villa. HISTORY OF PRESENT ILLNESS: Guido 54-year-old gentleman, admitted with abdominal pain. He describes the pain occurring when he was standing on a chair, putting up [employer] lights. The pain extended from the abdomen to the left chest to the left shoulder. He has a history of obstructive sleep apnea, intermittent atrial fibrillation in the past, hiatal hernia, gastroesophageal reflux. He had difficulty breathing during the episode of pain. He has had a vasectomy in the past. ALLERGIES: NO ALLERGIES. MEDICATIONS: Include aspirin, testosterone, and Crestor. SOCIAL HISTORY: He is an ex-smoker, but smoked for only 1 year. Works as a mortgage loan processor. FAMILY HISTORY: Positive for cancer of the lung and esophagus and smokers. PHYSICAL EXAMINATION: VITAL SIGNS: Temperature 96.5, pulse 71, respirations 18, blood pressure 142/70. GENERAL: Burly white male, in no acute distress. LUNGS: Clear anteriorly. HEART: Regular rhythm. ABDOMEN: Obese. EXTREMITIES: Nonedematous. IMAGING DATA: Echocardiogram is in progress. IMPRESSION: One of atypical chest pain, moderate renal failure. Consider V/Q lung scan, but we will defer to Cardiology. We may decide to proceed with nuclear cardiac stress test. Begin prophylactic Lovenox. D-dimer is positive, will increase to therapeutic level. Resume BiPAP at night. The patient uses BiPAP at level 27/17. Thank you for this kind referral. MD LEIF Cortés/MODBud /[id number]
--- NOTE | 2019-05-08 16:43 | NUR ---
Patient alert and responsive, no resp distress, D-dimer negative, will complete VQ scan tomorrow and call from [facility] stating they will do VQ scan at 1300 tomorrow but informed patient wants to be discharged in the morning and to complete diagnostic early in the morning.
--- NOTE | 2019-05-08 19:20 | NUR ---
Patient visited in room during nursing rounds. Patient alert and oriented x3. No distress or discomfort noted. Pt ambulatory in room prn. Pt stated he is ready to go home anytime. CPAP (from home) at bedside for night use. Call franks within reach.
--- NOTE | 2019-05-08 20:00 | NUR ---
Dr. Jones in room talking to patient.
[2019-05-08] MEDS ORDERED: SIMVASTATIN 20 MG TAB PO SCH (21:00)
--- NOTE | 2019-05-08 21:00 | NUR ---
Pt called nurse and informed to ask doctor Calzada or whoever doctor is covering if VQ scan still necessary for tomorrow. Pt desires to go home tonight if possible.
--- NOTE | 2019-05-08 21:10 | NUR ---
Spoke with Dr. Pacheco and asked if VQ scan (ordered by Dr. Calzada) still necessary for tomorrow. stated pt needs VQ scan and so patient is not to be discharged tonight. Information relayed to patient and pt agreed on plan to do VQ scan tomorrow.
--- NOTE | 2019-05-08 22:01 | Myoview Stress Test ---
DATE OF STUDY: 05/08/2019 09:42:00 Stress Test - Treadmill ONLY PROCEDURE TITLE: Rest/stress single isotope SPECT imaging with exercise stress and gated SPECT imaging. INDICATION: Chest pain. PROCEDURE IN DETAIL: The patient performed treadmill exercise using Reid protocol exercising for 6 minutes to stage II and completing estimated workload of 7 metabolic equivalents (METs). The heart rate was 82 beats per minute at rest and increased to 121 beats per minute at peak exercise, which was 72% of the maximum predicted heart rate. The resting blood pressure was 126/71 mmHg and increased to 147/67 mmHg, which is a normal response. The resting electrocardiogram demonstrated normal sinus rhythm. There were no ST-segment changes suggestive of myocardial ischemia. Myocardial perfusion imaging was performed at rest following the injection of 11 mCi of tetrofosmin. At peak pharmacologic effect, the patient was injected with 30.8 mCi of tetrofosmin. Gated post-stress tomographic imaging was performed. FINDINGS: The overall quality of study is fair. Attenuation artifact is present. Left ventricular cavity is noted to be normal size on the rest and stress studies. SPECT images demonstrate a small mild perfusion defect in the inferior wall at rest and stress. Gated SPECT imaging reveals normal myocardial thickening and wall motion. The left ventricular ejection fraction was calculated to be greater than 70%. IMPRESSION: Myocardial perfusion imaging is abnormal. There is a small area of nontransmural scar in the inferior wall, cannot rule out attenuation artifact. Overall left ventricular systolic function was normal without regional wall motion abnormalities. Livia Jones MD ABS/MODL /[id number]
[2019-05-09 00:19] VITALS: BP 115/59
--- NOTE | 2019-05-09 01:37 | Consultation ---
DATE OF CONSULTATION: 05/08/2019 Cardiology Consultation REQUESTING PHYSICIAN: Cristina Bocanegra MD REASON FOR CONSULTATION: Chest pain. HISTORY OF PRESENT ILLNESS: This is a 54-year-old man with history of hyperlipidemia and atrial fibrillation, who presents with complaints of chest pain. The patient reports he was putting up the [employer] lights and shortly after finishing, he developed epigastric pain, he described as dull with radiation to the left shoulder and neck. This was 8/10 in severity and lasted approximately 2 hours. There is no orthopnea, palpitations, or paroxysmal nocturnal dyspnea. Due to his continued symptoms, he presented to the ER for further care. REVIEW OF SYSTEMS: Negative except as per HPI. PAST MEDICAL HISTORY: 1. Hyperlipidemia. 2. Atrial fibrillation, not on medications. PAST SURGICAL HISTORY: History of vasectomy . ALLERGIES: PLEASE SEE EMR. MEDICATIONS: Please see medication list. SOCIAL HISTORY: He reports remote history of tobacco use. Drinks alcohol occasionally. No illicit drugs, previously did tobacco. FAMILY HISTORY: Pertinent for brother with heart disease and murmur. PHYSICAL EXAMINATION: VITAL SIGNS: 96.5 degrees, pulse 60, respiratory rate 19, blood pressure 135/67, oxygen saturation 97% on room air. GENERAL: Morbidly obese gentleman, in no acute distress. Awake and alert. HEENT: Normocephalic, atraumatic. Pupils equal. No scleral icterus. NECK: Supple. No thyroid or cervical lymphadenopathy. No carotid bruits. LUNGS: Clear to auscultation bilaterally. No wheezes or crackles. CARDIOVASCULAR: Normal rate, regular rhythm. No murmur. Normal S1, S2. ABDOMEN: Soft and nontender. EXTREMITIES: No edema. NEUROLOGIC: Nonfocal exam. LABORATORY DATA: WBC 10.6, hemoglobin 17.5, hematocrit 52.5, platelets 202. Sodium 135, potassium 3.8, chloride 101, CO2 of 23, BUN 14, and creatinine 1.09. Troponin 0.006. Cholesterol 170, LDL 117, HDL 28, triglycerides 127. EKG, sinus rhythm, premature ventricular complexes or fusion complexes. Chest x-ray, no acute thoracic radiographic abnormality. IMPRESSION: 1. Chest pain. 2. History of atrial fibrillation. 3. Hyperlipidemia. RECOMMENDATIONS: Obtain echocardiogram. Given risk factors, ischemic evaluation is indicated with nuclear stress test. Monitor the patient closely on telemetry. The patient reports history of atrial fibrillation, but indicates that he is no longer taking any medications for rate control or anticoagulation. His CHADSVasc score is only 1. Monitor for recurrent atrial fibrillation. Continue aspirin for CVA prophylaxis instead. Thank you for this consult. We will continue to follow. ADDENDUM: Nuclear stress test demonstrated what appears to be a small nontransmural scar in the inferior wall, cannot rule out attenuation artifact. No evidence of ischemia was observed. This result was discussed with the patient. Recommend continuation aspirin. Start statin. If he is chest pain free, he may be discharged to follow up as an outpatient for cardiac catheterization at that time. Livia Jones MD ABS/MODL /[id number]
[2019-05-09 04:39] VITALS: BP 109/62
[2019-05-09 06:14] LABS: BLOOD UREA NITROGEN 14 mg/dL (7-26); BUN/CREATININE RATIO 12 (6-25); CARBON DIOXIDE 27 mmol/L (22-29); CHLORIDE 103 mmol/L (98-107); CREATININE, SERUM 1.21 mg/dL (0.72-1.25); EST GLOMERULAR FILTRATION RATE > 60 ML/MIN (60-); GLUCOSE 105 mg/dL (74-118); SODIUM 138 mmol/L (136-145)
--- NOTE | 2019-05-09 07:00 | NUR ---
BEDSIDE SHIFT REPORT FROM NIGHT RN. PT DENIES NEEDS AT THIS TIME.
[2019-05-09] MEDS ORDERED: PANTOPRAZOLE SOD 40 MG TABEC PO SCH (07:30)
[2019-05-09 07:33] LABS: FREE T4 (FREE THYROXINE) 0.71 ng/dL (0.8-1.8); THYROID STIMULATING HORMONE 1.091 uIU/mL (0.350-4.940)
[2019-05-09 08:45] VITALS: BP 127/65
[2019-05-09] MEDS: ASPIRIN 81 MG ENTERIC COATED PO SCH (09:19)
[2019-05-09] MEDS: PANTOPRAZOLE 40 MG 10ML VIAL IV SCH (09:19)
[2019-05-09] MEDS: SODIUM CHLORIDE 0.45% 1,000 ML IV SCH (11:25)
--- NOTE | 2019-05-09 11:30 | NUR ---
[place] FROM STANDPOINT OF DR. RODRIGUEZ FOR PT TO DISCHARGE AND FOLLOW UP IN 1 WEEK.
[2019-05-09 12:25] VITALS: BP 127/65
--- NOTE | 2019-05-09 12:49 | Diagnostic Imaging Report ---
Ventilation/perfusion lung scan Clinical Information: Atypical chest pain Comparison: Chest radiograph 05/07/2019 Discussion: Xenon-133 gas 18.7 mCi was administered via inhalation. Dynamic images of the lungs in the posterior projection were obtained through single breath, equilibrium, and washout phases. Distribution of tracer activity appears physiologic throughout the lungs.. There are no segmental ventilatory defects. Washout of tracer is normal with no evidence of air trapping. Perfusion images of the lungs were obtained in multiple projections following intravenous administration of approximately 6 mCi of Tc-99m MAA. Distribution of tracer appears physiologic throughout the lungs. The contours of the lungs are well demarcated. There are no segmental perfusion defects of any size. The cardiomediastinal silhouette is unremarkable. Impression: Normal VQ scan Scan findings represent a VERY LOW probability for acute pulmonary embolic disease based on the PIOPED II criteria. Signed by: Dr. Vonnie Garduno M.D. on 05/09/2019 12:46 PM
[2019-05-09] MEDS ORDERED: PANTOPRAZOLE SO40 MG PO (13:30)
[2019-05-09] MEDS ORDERED: LEVOTHYROXINE50 MCG PO (13:30)
[2019-05-09] MEDS ORDERED: ATORVASTATIN CA20 MG PO (13:31)
[2019-05-09] MEDS ORDERED: ATORVASTATIN 20 MG TAB PO SCH (21:00)
--- NOTE | 2019-05-10 01:55 | Progress Note ---
DATE: 05/09/2019 Cardiology Progress Note SUBJECTIVE: The patient denies chest pain or shortness of breath. OBJECTIVE: VITAL SIGNS: Temperature 97.2 degrees, pulse 61, respiratory rate 18, blood pressure 127/65, and oxygen saturation 93% on room air. GENERAL: Morbidly obese gentleman, in no acute distress, awake and alert. LUNGS: Clear to auscultation bilaterally. No wheezes or crackles. HEART: Normal rate, regular rhythm. No murmur. Normal S1 and S2. ABDOMEN: Soft and nontender. EXTREMITIES: No edema. NEURO: Nonfocal exam. CARDIAC MEDICATIONS: Aspirin 81 mg p.o. daily, simvastatin 5 mg p.o. at bedtime, atorvastatin 40 mg p.o. at bedtime, mg p.o. daily. LABORATORY DATA: Sodium 138, potassium 4, chloride 103, CO2 of 27, BUN 14, and creatinine 1.21. Telemetry; normal sinus rhythm. IMPRESSION: 1. Chest pain. 2. History of atrial fibrillation. 3. Hyperlipidemia. RECOMMENDATIONS: Ischemic evaluation suggested a small nontransmural scar in the inferior wall, cannot rule out attenuation artifact. Start the patient on aspirin, increase, also lowering to atorvastatin instead of simvastatin. As the patient is chest pain free without evidence of ischemia on his stress test, he may be discharged home to discuss outpatient cardiac catheterization. Monitor the patient on telemetry while admitted. Continue current cardiac medications. No further cardiac evaluation is needed at this time. Thank you for this consult. We will continue to follow. Livia Jones MD ABS/MODL /[id number]
--- OUTSIDE RECORDS SUMMARY | 2019-05-16 11:09 | XMS REPORT | Summary of Care ---
Author Author ABDIRIZAK BAIG M.D. Organization Unknown Address [facility] Phone Unavailable Care Team Providers Care Billet Driller Name Role Phone ABDIRIZAK BAIG M.D. Unavailable Unavailable ADELAIDE HERNANDEZ, DAT Unavailable Unavailable Unavailable Unavailable Functional Status Name Dates Details Functional status health issues are not documented Status: Name Dates Details Cognitive status health issues are not documented Status: Problems Name Dates Details Limb pain (729.5, M79.609) Status: Active Acute internal derangement of knee, left (717.9, M23.92) Status: Active Medications Name Dates Details Medrol 4 MG Oral Tablet Therapy Pack TAKE DIRECTED Quantity: 1 ABDIRIZAK BAIG M.D. * Start : 13-Sep-2016 Active 21 Tablet Pack Allergies and Adverse Reactions Name Dates Details No Known Drug Allergies (Allergy) Status: Active Procedures Procedure Dates Details Procedures not documented Immunization Name Dates Details Immunizations not documented Social History Name Dates Details Unknown if ever smoked Vital Signs Date Test Result Details No Known Vitals to report Results Date Description Value Details Results not documented Plan of Care Name Dates Details Planned Observations Planned Goals not documented Instructions Name Dates Details Instructions not documented Encounters Appointment; ELSIE CHRISTOPHER M.D. Encounter Diagnosis: Problem not documented On: 28-Jun-2016 13:00 Appointment; ABDIRIZAK BAIG M.D. Encounter Diagnosis: Problem not documented On: 13-Sep-2016 9:30 Appointment; ABDIRIZAK BAIG M.D. Encounter Diagnosis: Problem not documented On: 18-Oct-2016 15:00 Appointment; ABDIRIZAK BAIG M.D. Encounter Diagnosis: Problem not documented On: 08-Nov-2016 10:00 Appointment; ABDIRIZAK BAIG M.D. Encounter Diagnosis: Problem not documented On: 29-Nov-2016 10:00 Appointment; ABDIRIZAK BAIG M.D. Encounter Diagnosis: Problem not documented On: 29-Nov-2016 15:30 Appointment; ABDIRIZAK BAIG M.D. Encounter Diagnosis: Problem not documented On: 06-Dec-2016 15:30 Appointment; ABDIRIZAK BAIG M.D. Encounter Diagnosis: Problem not documented On: 13-Dec-2016 16:15
== END 2019-05-09 13:44 | disposition home or self-care (01) ==
LOC: ER 20:22 → ERHOLD 23:56 → MED/SURG 05-08 00:37
PROVIDERS: ADMIT Internal Medicine; ATTEND Internal Medicine
DX: R07.89 Other chest pain (principal); I10 Essential (primary) hypertension; I25.10 Atherosclerotic heart disease of native coronary artery without angina pectoris; I48.91 Unspecified atrial fibrillation; E78.5 Hyperlipidemia, unspecified; K21.9 Gastro-esophageal reflux disease without esophagitis; Z87.891 Personal history of nicotine dependence; Z82.49 Family history of ischemic heart disease and other diseases of the circulatory system; E23.0 Hypopituitarism; Z79.890 Hormone replacement therapy; N19 Unspecified kidney failure
CPT/HCPCS: 36415 ×3; 71045; 76705; 78452; 78582; 80048 ×2; 80053; 80061; 82150; 82550 ×2; 82553 ×2; 83690; 84439; 84443; 84484 ×2; 85025; 85379; 93005; 93017; 93306; 99284; A9502; A9540; A9558; C9113 ×2; G0378 ×3; J1650

== ENCOUNTER → 2019-07-28 | Outpatient (CLI) | payer OTHER ==
[~2019-07-28] MED LIST changes: +ATORVASTATIN CA20 MG PO; +LEVOTHYROXINE50 MCG PO; +PANTOPRAZOLE SO40 MG PO
--- NOTE | 2019-07-28 10:36 | Diagnostic Imaging Report ---
Thyroid Ultrasound Clinical Diagnosis: Multiple thyroid nodules Comparison: 05/23/2018 Technique: Multiple longitudinal and transaxial ultrasound images were performed with a 12 MHz linear transducer. Report: Right lobe: The right lobe measures 5.9 cm x 2.8 cm x 2.8 cm. There are no nodules seen. The isthmus measures 6 mm. Left lobe: The left lobe measures 5.6 cm x 2.6 cm x 2.3 cm. There are no nodules seen. Impression: No thyroid nodules identified bilaterally. Signed by: Neri Weinstein MD on 07/28/2019 10:33 AM
== END ==
LOC: US 09:26
PROVIDERS: ATTEND Otolaryngology
DX: E04.2 Nontoxic multinodular goiter (principal)
CPT/HCPCS: 76536

== ENCOUNTER → 2020-08-05 | Outpatient (CLI) | payer OTHER | LOC: US 16:35 | PROVIDERS: ATTEND Otolaryngology | DX: E04.2 Nontoxic multinodular goiter (principal) | CPT/HCPCS: 76536 ==

== ENCOUNTER → 2022-04-28 | Outpatient (CLI) | payer OTHER | LOC: US 07:44 | PROVIDERS: ATTEND Otolaryngology | DX: E04.2 Nontoxic multinodular goiter (principal) | CPT/HCPCS: 76536 ==

== ENCOUNTER 2022-09-25 07:00 | Emergency (ER) | payer OTHER ==
[~2022-09-25] VITALS: Ht 185.4 cm; Wt 145.1 kg
[2022-09-25] MEDS ORDERED: Morphine 4mg INJECTION 4 MG/ML INJ IV STA (07:17)
[2022-09-25] MEDS ORDERED: ONDANSETRON HCL INJ 2MG/ML 2ML 2 MG/ML VIAL IV STA (07:17)
[2022-09-25 07:21] LABS: BASOPHILS # (AUTO) 0.1 (0.0-0.1); BASOPHILS % 0.6 % (0.0-1.0); EOSINOPHILS # (AUTO) 0.2 (0.0-0.4); EOSINOPHILS % 1.9 % (0.0-6.0); HEMATOCRIT 41.9 % (38.2-49.6); HEMOGLOBIN 14.5 g/dL (14.0-18.0); LYMPHOCYTES # (AUTO) 1.3 (1.0-3.2); LYMPHOCYTES % 14.9 % (18.0-39.1); MEAN CORPUSCULAR HEMOGLOBIN 32.2 pg (28-32); MEAN CORPUSCULAR HGB CONC 34.6 g/dL (31-35); MEAN CORPUSCULAR VOLUME 93.1 fL (81-99); MONOCYTES # (AUTO) 0.8 (0.2-0.8); MONOCYTES % 9.6 % (4.4-11.3); NEUTROPHILS # (AUTO) 6.4 (2.1-6.9); NEUTROPHILS % 72.8 % (38.7-80.0); PLATELET COUNT 185 x10e3/uL (140-360); RED CELL DISTRIBUTION WIDTH 12.1 % (11.7-14.4)
[2022-09-25 07:28] LABS: BACTERIA,URINE FEW /HPF; CLARITY,URINE TURBID (CLEAR); COLOR,URINE YELLOW (YELLOW); EPITHELIAL CELLS,URINE FEW /LPF; KETONES,URINE NEGATIVE (NEGATIVE); LEUKOCYTE ESTERASE ,URINE NEGATIVE (NEGATIVE); NITRITE,URINE NEGATIVE (NEGATIVE); PROTEIN,URINE DIPSTICK 1+ (NEGATIVE); RBC,URINE >50 /HPF (0-5); URINE UROBILINOGEN 0.2 mg/dL (0.2 - 1); WBC,URINE (MAN) 0-5 /HPF (0-5)
[2022-09-25 07:46] LABS: ALBUMIN/GLOBULIN RATIO 1.2 (0.8-2.0); ANION GAP 14.1 mmol/L (8-16); CALCIUM 9.1 mg/dL (8.4-10.2); CREATININE, SERUM 1.3 mg/dL (0.72-1.25); POTASSIUM 4.1 mmol/L (3.5-5.1)
[2022-09-25] MEDS ORDERED: KETOROLAC TROMETHAMINE 30 MG/ML VIAL IV STA (08:08)
[2022-09-25 08:09] LABS: CREATINE KINASE MB 2.9 ng/mL (0-5.0)
[2022-09-25] MEDS ORDERED: SODIUM CHLORIDE 0.9% 1000ML 1,000 ML IV ONE (08:15)
[2022-09-25] MEDS ORDERED: FLOMAX0.4 MG PO (11:25)
[2022-09-25] MEDS ORDERED: KETOROLAC TROME10 MG PO (11:25)
[2022-09-25 11:59] VITALS: BP 133/76
== END 2022-09-25 11:51 | disposition home or self-care (01) ==
LOC: ER 07:08
DX: R10.32 Left lower quadrant pain (principal); N20.0 Calculus of kidney; I10 Essential (primary) hypertension; I48.91 Unspecified atrial fibrillation; E78.5 Hyperlipidemia, unspecified; K21.9 Gastro-esophageal reflux disease without esophagitis; G47.30 Sleep apnea, unspecified
CPT/HCPCS: 36415; 71045; 74176; 80053; 81001; 82550; 82553; 83690; 83880; 84484; 85025; 93005; 99284; J1885; J2270; J2405; J7030